=== PATIENT | male | born 1970 | race African-American/Black ===

== ENCOUNTER 2021-03-12 00:32 | Emergency (ER) | payer MEDICAID ==
[~2021-03-12] VITALS: Ht 175.3 cm; Wt 80.0 kg
[2021-03-12] MEDS ORDERED: KETOROLAC 60MG/2ML VIAL IM ONE (02:45)
[2021-03-12] MEDS ORDERED: BO1 TP ×2 (02:47)
[2021-03-12] MEDS ORDERED: METHOCARBAMOL 500MG TABLET PO ONE (03:15)
[2021-03-12] MEDS ORDERED: IBUP-2029 MT (03:44)
[2021-03-12] MEDS ORDERED: METH-773 MT (03:44)
[2021-03-12] MEDS ORDERED: ACETAMINOPHEN 325MG TABLET PO ONE (03:45)
[2021-03-12 04:48] VITALS: BP 137/82
== END 2021-03-12 04:49 | disposition home or self-care (01) ==
LOC: ER 00:32
DX: S39.012A Strain of muscle, fascia and tendon of lower back, initial encounter (principal); R51.9 Headache, unspecified; Z79.899 Other long term (current) drug therapy; Z98.890 Other specified postprocedural states; X58.XXXA Exposure to other specified factors, initial encounter; Y93.89 Activity, other specified; Y92.89 Other specified places as the place of occurrence of the external cause; Y99.8 Other external cause status
CPT/HCPCS: 99283